=== PATIENT | female | born 1965 | race African-American/Black ===

== ENCOUNTER 2017-02-13 08:34 | Emergency (ER) | payer MEDICAID ==
[~2017-02-13] VITALS: Ht 160 cm; Wt 83.9 kg
[2017-02-13 09:51] LABS: Basophils # (auto) 0 uL; Basophils % (auto) 0.8 % (0.0-2.0); CONDITION Y; DEFINITIVE SEE PRINTOUT; Eosinophils # (auto) 0.2 uL; Eosinophils % (auto) 4.4 % (0.0-7.0); Hematocrit 40.3 % (36.0-46.0); Hemoglobin 13.4 g/dL (12.2-16.2); Lymphocytes # (auto) 2.7 uL; Lymphocytes % (auto) 48.8 % (10.0-50.0); Mean Corpuscular Hemoglobin 26.9 pg (28.0-32.0); Mean Corpuscular Hgb Conc. 33.3 g/dL (32.0-36.0); Mean Corpuscular Volume 80.8 fL (80.0-100.0); Mean Platelet Volume 8.5 fL (7.4-10.4); Monocytes # (auto) 0.5 uL; Monocytes % (auto) 8.4 % (0.0-12.0); Neutrophils # (auto) 2.1 uL; Neutrophils % (auto) 37.6 % (37.0-80.0); Platelet Count (auto) 377 10^3/uL (140-450); Red Cell Distribution Width 13.9 % (11.6-16.0); White Blood Cell 5.6 10^3/uL (4.4-10.8)
[2017-02-13 10:21] LABS: Albumin 3.6 g/dL (3.4-5.0); Alkaline Phosphatase 51 U/L (45-117); Anion Gap 7 (5-15); Aspartate Aminotransferase 30 U/L (15-37); BUN/Creatinine Ratio 14.9; Bilirubin, Total 0.3 mg/dL (0.2-1.0); Blood Urea Nitrogen 11 mg/dL (7-18); Calcium 8.8 mg/dL (8.5-10.1); Carbon Dioxide 25 mmol/L (21-32); Chloride 104 mmol/L (98-107); GFR African American 107 mL/min; GFR Non-African American 89 mL/min; Glucose 89 mg/dL (74-106); Sodium 136 mmol/L (136-145); Total Protein 7.9 g/dL (6.4-8.2)
[2017-02-13 10:26] LABS: Urine RBC None Seen /hpf (0 - 4)
[2017-02-13 10:38] LABS: Urine Bilirubin Negative (Negative); Urine Blood Negative /uL (Negative); Urine Color Yellow (Yellow); Urine Glucose Normal (Normal); Urine Ketone Negative (Negative); Urine Nitrite Negative (Negative); Urine Squamous Epithelial Cell FEW /hpf (<5); Urine Urobilinogen Normal (Negative); Urine pH 5.5 (5.0-8.0)
[2017-02-13 12:19] VITALS: BP 125/67
== END 2017-02-13 12:23 | disposition home or self-care (01) ==
LOC: ER 08:35
DX: R07.2 Precordial pain (principal); M70.51 Other bursitis of knee, right knee; M54.5 Low back pain; M41.9 Scoliosis, unspecified; Z87.442 Personal history of urinary calculi; Y93.89 Activity, other specified
CPT/HCPCS: 36415; 71020; 80053; 81001; 81025; 84484; 85025; 93005

== ENCOUNTER 2018-08-27 09:35 | Emergency (ER) | payer MEDICAID ==
[~2018-08-27] VITALS: Ht 160 cm; Wt 90.7 kg
[2018-08-27 09:44] VITALS: BP 153/75
[2018-08-27] MEDS ORDERED: methylPREDNISolone SOD SUCC 125 MG/2 ML VL IM ONE (10:15)
== END 2018-08-27 11:01 | disposition home or self-care (01) ==
LOC: ER 09:35
DX: R22.0 Localized swelling, mass and lump, head (principal); T78.40XA Allergy, unspecified, initial encounter; X58.XXXA Exposure to other specified factors, initial encounter
CPT/HCPCS: 96372; 99283; J2930

== ENCOUNTER 2023-11-22 11:20 | Emergency (ER) | payer MEDICAID ==
[~2023-11-22] VITALS: Ht 160 cm; Wt 100.0 kg
[2023-11-22 14:34] VITALS: BP 141/61; PULSE 70; RESP 18; TEMP 98.5; O2SAT 96
[2023-11-22] MEDS ORDERED: MELO7.5T7 PO (15:11)
== END 2023-11-22 15:23 | disposition home or self-care (01) ==
LOC: ER 11:20 → EDBD 11:20 → ER 15:23
DX: S93.402A Sprain of unspecified ligament of left ankle, initial encounter (principal); Z87.442 Personal history of urinary calculi; W22.8XXA Striking against or struck by other objects, initial encounter; Y93.89 Activity, other specified; Y92.89 Other specified places as the place of occurrence of the external cause; Y99.8 Other external cause status
CPT/HCPCS: 73610